=== PATIENT | male | born 1950 | race Hispanic/Latino ===

== ENCOUNTER → 2020-08-14 | Outpatient (CLI) | payer OTHER | END | disposition home or self-care (01) | LOC: SHCH 14:21 | PROVIDERS: ATTEND Internal Medicine Cardiovascular Disease | DX: I08.1 Rheumatic disorders of both mitral and tricuspid valves (principal); I27.20 Pulmonary hypertension, unspecified; I48.0 Paroxysmal atrial fibrillation | CPT/HCPCS: 93306; 93356 ==

== ENCOUNTER 2021-09-27 15:29 | Inpatient (IN) | payer OTHER ==
[~2021-09-27] VITALS: Ht 177.8 cm; Wt 97.3 kg
[2021-09-27 16:11] LABS: BASOPHILS % (AUTO) 0.3 % (0.0-5.0); HEMATOCRIT 48.2 % (42-54); LYMPHOCYTES % (AUTO) 3.4 % (21.0-51.0); MEAN CORPUSCULAR HEMOGLOBIN 30.5 pg (27.0-33.0); MEAN CORPUSCULAR HGB CONC 33.6 g/dL (32.0-36.0); MEAN CORPUSCULAR VOLUME 90.6 fL (79-99); MONOCYTES % (AUTO) 5.4 % (3.0-13.0); NEUTROPHILS % (AUTO) 88.6 % (40.0-77.0); PLATELET COUNT (AUTO) 220 K/uL (130-400); RED BLOOD CELL COUNT(AUTO) 5.32 MIL/uL (4.50-6.20); RED CELL DISTRIBUTION WIDTH 14.2 % (11.0-15.5); WHITE BLOOD COUNT (AUTO) 22.1 K/uL (4.8-10.8)
[2021-09-27 16:23] LABS: CREATININE 1.6 mg/dL (0.5-1.5); POTASSIUM 4.5 mmol/L (3.5-5.1)
[2021-09-27 16:28] LABS: BILIRUBIN,TOTAL 1.1 mg/dL (0.2-1.0); TOTAL PROTEIN, SERUM 7.6 g/dL (6.0-8.3)
[2021-09-27 16:39] LABS: B-TYPE NATRIURETIC PEPTIDE 160 pg/mL (0-100)
[2021-09-27 16:40] LABS: ALBUMIN 5.6 g/dL (3.5-5.0)
[2021-09-27] MEDS ORDERED: CEFTRIAXONE 1G VIAL IVP ONE (17:00)
[2021-09-27] MEDS ORDERED: CEFTRIAXONE 1G VIAL ONE (18:09)
[2021-09-27] MEDS ORDERED: DILTIAZEM 125 MG/25 ML INJ 125 MG in 0.9%NACL 100ML 100 ML IV SCH (18:30)
[2021-09-27] MEDS ORDERED: ACETAMINOPHEN 325 MG TAB PO PRN (19:00)
[2021-09-27] MEDS ORDERED: ONDANSETRON 4MG INJ IV PRN (19:00)
[2021-09-27] MEDS ORDERED: 0.9%NACL 1000ML 1,000 ML IV SCH ×2 (19:00)
[2021-09-27] MEDS ORDERED: NITROGLYCERIN 0.4 MG SL TAB SL PRN (19:00)
[2021-09-27] MEDS: ZOSYN 3.375GM +NS 50ML IV SCH (19:26)
[2021-09-27 19:31] LABS: HEMOGLOBIN A1C 5.7 % (4.0-6.0)
[2021-09-27] MEDS ORDERED: HEPARIN 5,000 UNIT VIAL ONE (19:32)
[2021-09-27] MEDS: 0.9%NACL 1000ML 1,000 ML IV SCH (19:33)
[2021-09-27] MEDS ORDERED: DIGO250T73 PO (20:04)
[2021-09-27] MEDS ORDERED: LISI20TA24 PO (20:04)
[2021-09-27] MEDS ORDERED: FURO40TA5 PO (20:04)
[2021-09-27] MEDS ORDERED: ATOR20TA65 PO (20:04)
[2021-09-27] MEDS ORDERED: APIX5TAB PO (20:04)
[2021-09-27] MEDS ORDERED: METO25TA6 PO (20:04)
[2021-09-27] MEDS: FAMOTIDINE 20MG TAB PO SCH (20:30)
[2021-09-27] MEDS: METOPROLOL TARTRATE 25 MG TAB PO SCH (20:30)
[2021-09-27] MEDS: HEPARIN 5,000 UNIT VIAL SQ SCH (20:31)
[2021-09-27 21:33] LABS: APPEARANCE,URINE CLEAR (CLEAR); BILIRUBIN,URINE NEGATIVE (NEGATIVE); COLOR,URINE YELLOW (YELLOW); GLUCOSE, URINE (UA) NEGATIVE (NEGATIVE); KETONES,URINE NEGATIVE (NEGATIVE); LEUKOCYTE ESTERASE ,URINE NEGATIVE (NEGATIVE); NITRATE,URINE NEGATIVE (NEGATIVE); OCCULT BLOOD,URINE MODERATE (NEGATIVE); PROTEIN,URINE TRACE mg/dL (NEGATIVE); UROBILINOGEN,URINE 0.2 mg/dL (0.2-1.0)
[2021-09-27 21:41] LABS: AMPHET/METH SCREEN,URINE NEGATIVE (NEGATIVE); BARBITURATE SCREEN, URINE NEGATIVE (NEGATIVE); BENZODIAZEPINES SCREEN,URINE NEGATIVE (NEGATIVE); CANNABINOID SCREEN,URINE NEGATIVE (NEGATIVE); COCAINE SCREEN,URINE NEGATIVE (NEGATIVE); OPIATE SCREEN,URINE NEGATIVE (NEGATIVE); PHENCYCLIDINE SCREEN,URINE NEGATIVE (NEGATIVE)
[2021-09-27 21:51] LABS: BACTERIA,URINE Few /HPF (None Seen); MUCUS,URINE Rare LPF (None Seen); SQUAMOUS EPITHELIAL CELL,UR Few /HPF (0-2); WBC,URINE 0-1 /HPF (0-1)
[2021-09-27 23:30] VITALS: BP 97/96
[2021-09-27] MEDS ORDERED: DILTIAZEM 125 MG/25 ML INJ 125 MG in 0.9%NACL 100ML 100 ML IV PRN (23:30)
[2021-09-28] MEDS ORDERED: GLUCAGON 1MG KIT 1 MG ML IM PRN
[2021-09-28] MEDS ORDERED: DEXTROSE 50%-WATER 50 ML DISP.SYRIN IV PRN
[2021-09-28] MEDS ORDERED: GABA-529 PO (00:06)
[2021-09-28] MEDS ORDERED: METF-446 PO (00:06)
[2021-09-28] MEDS ORDERED: CYCL-309 PO (00:06)
[2021-09-28 03:35] VITALS: BP 106/84
[2021-09-28] MEDS: ZOSYN 3.375GM +NS 50ML IV SCH ×3 (03:47→19:14)
[2021-09-28] MEDS: INSULIN HUMULIN R 100 UNIT/ML 3ML SQ SCH ×4 (06:50→20:51)
[2021-09-28 10:22] VITALS: BP 120/74
[2021-09-28] MEDS: METOPROLOL TARTRATE 25 MG TAB PO SCH ×2 (10:27→20:46)
[2021-09-28] MEDS: HEPARIN 5,000 UNIT VIAL SQ SCH ×3 (10:28→20:47)
[2021-09-28] MEDS: 0.9%NACL 1000ML 1,000 ML IV SCH ×2 (10:29→21:00)
[2021-09-28 11:41] VITALS: BP 129/69
[2021-09-28] MEDS ORDERED: SOLU-MEDROL 40MG VIAL IVP ONE (15:00)
[2021-09-28] MEDS ORDERED: TRAMADOL HCL 50 MG TABLET PO PRN ×2 (15:30)
[2021-09-28] MEDS ORDERED: SODIUM CHLORIDE 3% FOR INHALATION 4 ML/AMP VIAL.NEB IH ONE ×2 (15:38→23:51)
[2021-09-28 16:33] VITALS: BP 99/68
[2021-09-28 20:00] VITALS: BP 126/75
[2021-09-28] MEDS: FAMOTIDINE 20MG TAB PO SCH (20:46)
[2021-09-28 23:45] VITALS: BP 116/72
[2021-09-29] MEDS: ZOSYN 3.375GM +NS 50ML IV SCH ×3 (03:13→18:18)
[2021-09-29 04:00] VITALS: BP 98/65
[2021-09-29 05:21] LABS: BASOPHILS % (AUTO) 0.2 % (0.0-5.0); HEMATOCRIT 40.5 % (42-54); LYMPHOCYTES % (AUTO) 4.1 % (21.0-51.0); MEAN CORPUSCULAR HEMOGLOBIN 30.9 pg (27.0-33.0); MEAN CORPUSCULAR HGB CONC 33.1 g/dL (32.0-36.0); MEAN CORPUSCULAR VOLUME 93.5 fL (79-99); MONOCYTES % (AUTO) 2.5 % (3.0-13.0); NEUTROPHILS % (AUTO) 91.7 % (40.0-77.0); PLATELET COUNT (AUTO) 207 K/uL (130-400); RED BLOOD CELL COUNT(AUTO) 4.33 MIL/uL (4.50-6.20); RED CELL DISTRIBUTION WIDTH 14.3 % (11.0-15.5); WHITE BLOOD COUNT (AUTO) 16.9 K/uL (4.8-10.8)
[2021-09-29 05:42] LABS: ALBUMIN 1.7 g/dL (3.5-5.0); BILIRUBIN,TOTAL 0.5 mg/dL (0.2-1.0); CREATININE 1.1 mg/dL (0.5-1.5); MAGNESIUM 2.1 mg/dL (1.80-2.40); PHOSPHORUS 3.5 mg/dL (2.5-4.9); POTASSIUM 4.8 mmol/L (3.5-5.1); TOTAL PROTEIN, SERUM 6.3 g/dL (6.0-8.3)
[2021-09-29] MEDS: INSULIN HUMULIN R 100 UNIT/ML 3ML SQ SCH ×4 (06:36→21:01)
[2021-09-29 08:00] VITALS: BP 134/87
[2021-09-29] MEDS: METOPROLOL TARTRATE 25 MG TAB PO SCH ×2 (10:01→21:06)
[2021-09-29] MEDS: HEPARIN 5,000 UNIT VIAL SQ SCH ×3 (10:02→21:02)
[2021-09-29] MEDS ORDERED: SODIUM CHLORIDE 3% FOR INHALATION 4 ML/AMP VIAL.NEB IH ONE (11:30)
[2021-09-29] MEDS: 0.9%NACL 1000ML 1,000 ML IV SCH ×2 (11:35→23:55)
[2021-09-29 12:00] VITALS: BP 121/78
[2021-09-29] MEDS: SOLU-MEDROL 40MG VIAL IVP SCH (12:36)
[2021-09-29 16:00] VITALS: BP 136/97
[2021-09-29 20:00] VITALS: BP 123/74
[2021-09-29] MEDS: FAMOTIDINE 20MG TAB PO SCH (21:06)
[2021-09-30] VITALS (7 sets, daily range): BP systolic 112–150; BP diastolic 77–98
[2021-09-30] MEDS: ZOSYN 3.375GM +NS 50ML IV SCH ×3 (02:07→18:20)
[2021-09-30 04:36] LABS: BASOPHILS % (AUTO) 0.1 % (0.0-5.0); HEMATOCRIT 40.2 % (42-54); MEAN CORPUSCULAR HEMOGLOBIN 29.8 pg (27.0-33.0); MEAN CORPUSCULAR HGB CONC 31.8 g/dL (32.0-36.0); MEAN CORPUSCULAR VOLUME 93.5 fL (79-99); MONOCYTES % (AUTO) 2.3 % (3.0-13.0); PLATELET COUNT (AUTO) 240 K/uL (130-400); RED CELL DISTRIBUTION WIDTH 14.2 % (11.0-15.5)
[2021-09-30 04:44] LABS: ALBUMIN 1.7 g/dL (3.5-5.0); BILIRUBIN,TOTAL 0.4 mg/dL (0.2-1.0); MAGNESIUM 2.1 mg/dL (1.80-2.40); PHOSPHORUS 3.6 mg/dL (2.5-4.9); POTASSIUM 4.8 mmol/L (3.5-5.1); TOTAL PROTEIN, SERUM 6.1 g/dL (6.0-8.3)
[2021-09-30] MEDS: INSULIN HUMULIN R 100 UNIT/ML 3ML SQ SCH ×4 (06:06→21:00)
[2021-09-30] MEDS: METOPROLOL TARTRATE 25 MG TAB PO SCH ×2 (09:07→21:21)
[2021-09-30] MEDS: SOLU-MEDROL 40MG VIAL IVP SCH (09:07)
[2021-09-30] MEDS: HEPARIN 5,000 UNIT VIAL SQ SCH ×3 (09:09→21:19)
[2021-09-30] MEDS: 0.9%NACL 1000ML 1,000 ML IV SCH (14:48)
[2021-09-30] MEDS: FAMOTIDINE 20MG TAB PO SCH (21:21)
[2021-10-01] MEDS: ZOSYN 3.375GM +NS 50ML IV SCH ×3 (03:37→18:33)
[2021-10-01] MEDS: 0.9%NACL 1000ML 1,000 ML IV SCH (03:37)
[2021-10-01 03:45] VITALS: BP 139/88
[2021-10-01 05:01] LABS: HEMATOCRIT 40.5 % (42-54); MEAN CORPUSCULAR HEMOGLOBIN 30.9 pg (27.0-33.0); MEAN CORPUSCULAR HGB CONC 33.3 g/dL (32.0-36.0); MEAN CORPUSCULAR VOLUME 92.7 fL (79-99); RED BLOOD CELL COUNT(AUTO) 4.37 MIL/uL (4.50-6.20); RED CELL DISTRIBUTION WIDTH 14.3 % (11.0-15.5); WHITE BLOOD COUNT (AUTO) 10.6 K/uL (4.8-10.8)
[2021-10-01 05:36] LABS: CREATININE 1.1 mg/dL (0.5-1.5); MAGNESIUM 2.2 mg/dL (1.80-2.40); PHOSPHORUS 3.3 mg/dL (2.5-4.9); POTASSIUM 4.8 mmol/L (3.5-5.1)
[2021-10-01] MEDS: INSULIN HUMULIN R 100 UNIT/ML 3ML SQ SCH ×4 (06:58→21:00)
[2021-10-01 07:30] VITALS: BP 120/87
[2021-10-01] MEDS: SOLU-MEDROL 40MG VIAL IVP SCH (09:01)
[2021-10-01] MEDS: METOPROLOL TARTRATE 25 MG TAB PO SCH ×2 (09:01→21:00)
[2021-10-01] MEDS: HEPARIN 5,000 UNIT VIAL SQ SCH (09:11)
[2021-10-01 11:00] VITALS: BP 141/91
[2021-10-01 15:30] VITALS: BP 149/93
[2021-10-01 20:21] VITALS: BP 149/88
[2021-10-01] MEDS ORDERED: ATORVASTATIN 20 MG TABLET PO SCH (21:00)
[2021-10-01] MEDS: APIXABAN 5 MG TABLET PO SCH (22:07)
[2021-10-01] MEDS: LISINOPRIL 20 MG TABLET PO SCH (22:07)
[2021-10-01] MEDS: FAMOTIDINE 20MG TAB PO SCH (22:07)
[2021-10-02 00:02] VITALS: BP 123/89
[2021-10-02] MEDS: ZOSYN 3.375GM +NS 50ML IV SCH (03:09)
[2021-10-02 03:50] VITALS: BP 138/94
[2021-10-02 05:08] LABS: HEMATOCRIT 38.9 % (42-54); MEAN CORPUSCULAR HEMOGLOBIN 30.3 pg (27.0-33.0); MEAN CORPUSCULAR HGB CONC 32.9 g/dL (32.0-36.0); NUCLEATED RED BLOOD CELLS 0.2 % (0.0-0.19); RED BLOOD CELL COUNT(AUTO) 4.23 MIL/uL (4.50-6.20); RED CELL DISTRIBUTION WIDTH 14.1 % (11.0-15.5); WHITE BLOOD COUNT (AUTO) 8.4 K/uL (4.8-10.8)
[2021-10-02 05:39] LABS: CREATININE 1.3 mg/dL (0.5-1.5); PHOSPHORUS 3.6 mg/dL (2.5-4.9); POTASSIUM 4.7 mmol/L (3.5-5.1)
[2021-10-02] MEDS: INSULIN HUMULIN R 100 UNIT/ML 3ML SQ SCH ×2 (06:36→11:30)
[2021-10-02 07:30] VITALS: BP 136/97
[2021-10-02] MEDS ORDERED: DIGOXIN 250MCG TABLET PO SCH (09:00)
[2021-10-02] MEDS ORDERED: FUROSEMIDE 40 MG TABLET PO SCH (09:00)
[2021-10-02 11:00] VITALS: BP 143/90
[2021-10-02] MEDS: SOLU-MEDROL 40MG VIAL IVP SCH (11:20)
[2021-10-02] MEDS: APIXABAN 5 MG TABLET PO SCH (11:21)
[2021-10-02] MEDS: METOPROLOL TARTRATE 25 MG TAB PO SCH (11:22)
[2021-10-02] MEDS: LISINOPRIL 20 MG TABLET PO SCH (11:22)
[2021-10-02 16:00] VITALS: BP 152/74
== END 2021-10-02 17:30 | disposition home or self-care (01) | DRG 309 ==
LOC: EDH 15:29 → EDHIP 18:57 → OBSVTOIN 18:57 → 3CH 21:30
PROVIDERS: ADMIT Internal Medicine Pulmonary Disease; ATTEND Internal Medicine Pulmonary Disease
DX: I48.91 Unspecified atrial fibrillation (principal); N39.0 Urinary tract infection, site not specified; E87.1 Hypo-osmolality and hyponatremia; E11.65 Type 2 diabetes mellitus with hyperglycemia; N18.30 Chronic kidney disease, stage 3 unspecified; D72.829 Elevated white blood cell count, unspecified; E66.9 Obesity, unspecified; E78.5 Hyperlipidemia, unspecified; Z20.822 Contact with and (suspected) exposure to COVID-19; I12.9 Hypertensive chronic kidney disease with stage 1 through stage 4 chronic kidney disease, or unspecified chronic kidney disease; E11.22 Type 2 diabetes mellitus with diabetic chronic kidney disease; E78.00 Pure hypercholesterolemia, unspecified; Z79.01 Long term (current) use of anticoagulants; Z68.30 Body mass index [BMI] 30.0-30.9, adult; Z79.899 Other long term (current) drug therapy; Z82.49 Family history of ischemic heart disease and other diseases of the circulatory system; Z83.3 Family history of diabetes mellitus
CPT/HCPCS: 36415; 71045; 74176; 80048; 80053; 80305; 81001; 82308; 82550; 82948; 83036; 83605; 83735; 83880; 84100; 84145; 84484; 84550; 85025; 85027; 86038; 86215; 86235; 86255; 86431; 87040; 87088; 87635; 87804; 93005; 94640; 97039; 99291; C9803; G0378; J0696; J1644; J1815; J2543; J2920; J3490; J7030

== ENCOUNTER → 2021-11-23 | Outpatient (CLI) | payer OTHER, MEDICARE ==
[~2021-11-23] VITALS: Ht 177.8 cm; Wt 92.1 kg
[~2021-11-23] MED LIST: APIX5TAB PO; ATOR20TA65 PO; CYCL-309 PO; DIGO250T73 PO; FURO40TA5 PO; GABA-529 PO; LISI20TA24 PO; METF-446 PO; METO25TA6 PO; REGADENOSON 0.4 MG/5 ML PF SYG IVP SCH
== END | disposition home or self-care (01) ==
LOC: SHCH 08:47
PROVIDERS: ATTEND Internal Medicine Cardiovascular Disease
DX: I25.5 Ischemic cardiomyopathy (principal); I48.91 Unspecified atrial fibrillation; I51.7 Cardiomegaly
CPT/HCPCS: 78452; 93017; 96374; A9500 ×2; J2785

== ENCOUNTER → 2022-02-08 | Outpatient (CLI) | payer MEDICARE ==
[~2022-02-08] MED LIST changes: -REGADENOSON 0.4 MG/5 ML PF SYG IVP SCH
== END | disposition home or self-care (01) ==
LOC: SHCH 15:46
PROVIDERS: ATTEND Internal Medicine Cardiovascular Disease
DX: I08.3 Combined rheumatic disorders of mitral, aortic and tricuspid valves (principal); I48.0 Paroxysmal atrial fibrillation
CPT/HCPCS: 93306

== ENCOUNTER 2023-01-06 05:30 | Emergency (ER) | payer MEDICARE ==
[~2023-01-06] VITALS: Ht 177.8 cm; Wt 96.2 kg
[2023-01-06 05:50] VITALS: BP 134/81; PULSE 93; RESP 23; O2SAT 96
[2023-01-06 05:55] LABS: BASOPHILS % (AUTO) 0.3 % (0.0-5.0); EOSINOPHILS % (AUTO) 0.8 % (0.0-8.0); HEMATOCRIT 42.6 % (42-54); LYMPHOCYTES % (AUTO) 9.3 % (21.0-51.0); MEAN CORPUSCULAR HEMOGLOBIN 29.7 pg (27.0-33.0); MEAN CORPUSCULAR HGB CONC 33.1 g/dL (32.0-36.0); MEAN CORPUSCULAR VOLUME 89.9 fL (79-99); MONOCYTES % (AUTO) 4.2 % (3.0-13.0); PLATELET COUNT (AUTO) 189 K/uL (130-400); RED BLOOD CELL COUNT(AUTO) 4.74 MIL/uL (4.50-6.20); RED CELL DISTRIBUTION WIDTH 13.3 % (11.0-15.5); WHITE BLOOD COUNT (AUTO) 13.8 K/uL (4.8-10.8)
[2023-01-06 05:57] LABS: APPEARANCE,URINE CLEAR (CLEAR); BILIRUBIN,URINE NEGATIVE (NEGATIVE); COLOR,URINE YELLOW (YELLOW); GLUCOSE, URINE (UA) NEGATIVE (NEGATIVE); KETONES,URINE NEGATIVE (NEGATIVE); LEUKOCYTE ESTERASE ,URINE NEGATIVE Leu/uL (NEGATIVE); NITRATE,URINE NEGATIVE (NEGATIVE); OCCULT BLOOD,URINE LARGE (NEGATIVE); PH,URINE 5.5 (5.0-8.0); PROTEIN,URINE 30 mg/dL (NEGATIVE); UROBILINOGEN,URINE 0.2 mg/dL (0.2-1.0)
[2023-01-06] MEDS ORDERED: FAMO-136 PO (05:57)
[2023-01-06] MEDS ORDERED: OMEP40CA21 PO (05:57)
[2023-01-06] MEDS ORDERED: CYCL-309 PO (05:57)
[2023-01-06] MEDS ORDERED: IBUP-1493 PO (05:57)
[2023-01-06 06:10] LABS: MUCUS,URINE FEW LPF (None Seen); RBC,URINE 51-100 /HPF (0-1); SQUAMOUS EPITHELIAL CELL,UR RARE /HPF (0-2)
[2023-01-06 06:13] LABS: CREATININE 1.4 mg/dL (0.5-1.5); POTASSIUM 4.2 mmol/L (3.5-5.1)
[2023-01-06 06:17] LABS: ALBUMIN 3.5 g/dL (3.5-5.0); TOTAL PROTEIN, SERUM 6.6 g/dL (6.0-8.3)
== END 2023-01-06 06:45 | disposition home or self-care (01) ==
LOC: EDH 05:30
DX: R10.12 Left upper quadrant pain (principal); I10 Essential (primary) hypertension; E78.00 Pure hypercholesterolemia, unspecified; E11.9 Type 2 diabetes mellitus without complications; I48.91 Unspecified atrial fibrillation; Z79.84 Long term (current) use of oral hypoglycemic drugs; Z79.899 Other long term (current) drug therapy
CPT/HCPCS: 36415; 80053; 81001; 83690; 84484; 85025; 93005

== ENCOUNTER → 2025-04-15 | Emergency (ER) | payer MEDICARE ==
[~2025-04-15] VITALS: Ht 175.3 cm; Wt 96.6 kg
[~2025-04-15] MED LIST changes: +IBUP-1493 PO; +OMEP40CA21 PO; +TRAM-543 PO
--- NOTE | 2025-04-15 18:30 | ERN ---
General Chief Complaint: Shoulder Injury/Pain Stated Complaint: LT SHOULDER INJURY Time Seen by MD: 17:37 Source: patient History of Present Illness Initial Comments THIS IS A 74-YEAR-OLD MALE COMING IN COMPLAINING OF LEFT SHOULDER PAIN PATIENT STATES THAT HE HAS A HAS BEEN HAVING THIS PAIN FOR TWO DAYS. HE FELL DOWN LANDED IN HIS LEFT SHOULDER. HE IS NOT ABLE TO ELEVATED SHOULDER. Allergies: Coded Allergies: No Known Drug Allergies (Unverified Allergy, Unknown, 09/27/21) Home Meds Active Scripts Omeprazole (Omeprazole) 40 Mg Capsule.dr, 40 MG PO DAILY, #30 CAP Prov:MAURILIO HERNANDEZ MD 01/06/23 Ibuprofen (Motrin/Advil) 800 Mg Tab, 800 MG PO TID, #30 TAB Prov:MAURILIO HERNANDEZ MD 01/06/23 Cyclobenzaprine HCl (Cyclobenzaprine HCl) 10 Mg Tablet, 10 MG PO TIDP PRN for PAIN, #30 TAB Prov:MAURILIO HERNANDEZ MD 01/06/23 Reported Medications Cyclobenzaprine HCl (Cyclobenzaprine HCl) 10 Mg Tablet, 1 TAB PO HS 09/28/21 Metformin HCl (Metformin HCl) 1,000 Mg Tablet, 1 TAB PO BID 09/28/21 Gabapentin (Gabapentin) 100 Mg Capsule, 1 CAP PO BID 09/28/21 Digoxin (Digoxin) 250 Mcg Tablet, 250 MCG PO DAILY, TAB 09/27/21 Atorvastatin Calcium (Atorvastatin Calcium) 20 Mg Tablet, 20 MG PO HS, TAB 09/27/21 Apixaban (Eliquis) 5 Mg Tablet, 5 MG PO BID, TAB 09/27/21 Metoprolol Tartrate (Metoprolol Tartrate) 25 Mg Tablet, 25 MG PO BID, TAB 09/27/21 Lisinopril (Lisinopril) 20 Mg Tablet, 20 MG PO BID, TAB 09/27/21 Furosemide (Furosemide) 40 Mg Tablet, 40 MG PO DAILY, TAB 09/27/21 Past Medical History Past Medical History: A-Fib, Diabetes-Type II, High Cholesterol, Hypertension, Other Medical History Other: PROSTATE Past Surgical History: Other Surgical History Other: RT SHOULDER Family History Family History: HTN Social History Social History: Negative, Lives with family ROS Dictation CONSTITUTIONAL: NO CHILLS, NO FEVER, NO WEAKNESS, NO DIAPHORESIS, NO MALAISE. HEAD/FACE: NO SIGNS OF TRAUMA. EENT: NO EYE PAIN, NO BLURRED VISION, NO TEARING, NO DOUBLE VISION, NO EAR PAIN, NO EAR DISCHARGE, NO NOSE PAIN, NO NASAL CONGESTION, NO THROAT PAIN, NO THROAT SWELLING, NO MOUTH PAIN. RESPIRATORY: NO COUGH, NO ORTHOPNEA, NO SOB, NO STRIDOR, NO WHEEZING. CARDIOVASCULAR: NO CHEST PAIN, NO EDEMA, NO PALPITATIONS, NO SYNCOPE. GASTROINTESTINAL/ABDOMINAL: NO ABDOMINAL PAIN, NO CONSTIPATION, NO DIARRHEA, NO NAUSEA, NO VOMITING. GENITOURINARY: NO ABNORMAL DISCHARGE, NO DYSURIA, NO FREQUENT URINATION, NO HEMATURIA. NO COMPLAINTS OF PAIN IN THE GENITALS. MUSCULOSKELETAL: NO BACK PAIN, NO GOUT, JOINT PAIN, NO JOINT SWELLING, MUSCLE PAIN, NO MUSCLE STIFFNESS, NO NECK PAIN. INTEGUMENTARY: NO CHANGE IN COLOR, NO CHANGE IN HAIR/NAILS, NO DRYNESS, NO LESION, NO LUMPS, NO RASH. NEUROLOGICAL/PSYCH: NO ANXIETY, NOT DEPRESSED, NO EMOTIONAL PROBLEM, NO HEADACHE, NO NUMBNESS, NO PRE-EXISTING DEFICIT, NO HISTORY OF SEIZURES, NO TREMORS, NO WEAKNESS. HEMATOLOGIC/LYMPHATIC: NOT ANEMIC, NO HISTORY OF BLOOD CLOTS, NO APPARENT BLEEDING, NO BRUISING, GLANDS NOT SWOLLEN. ALL SYSTEMS NEGATIVE, EXCEPT NOTED. Physical Exam Physical Exam Dictation VITAL SIGNS: REVIEWED. GENERAL APPEARANCE: ALERT, ORIENTED X3, NO ACUTE DISTRESS, OBESE. HEAD AND FACE: NON-TRAUMATIC. EYES: PERRL, PINK CONJUNCTIVAS, EYELID NO TRAUMA, ANTERIOR CHAMBER CLEAR. EARS: PINNAS INTACT AND NO SIGNS OF TRAUMA OR ERYTHEMA. EAR CANALS CLEAR AND NO DISCHARGE. TMS NO ERYTHEMA. NOSE: NO DISCHARGE, NO BLEEDING. OROPHARYNX: MOUTH NORMAL, TEETH NO CARIES, TONGUE PINK. PHARYNX CLEAR, NO ERYTHEMA. TONSILS NO EXUDATES, NO ABSCESSES NOTED. MUCOUS MEMBRANE MOIST. NECK: SUPPLE, NON-TENDER, NO THYROMEGALY, NO MASSES, NO JVD, NO BRUITS. BREAST: DEFERRED. CHEST: NO TENDERNESS, NO CREPITUS, NO PARADOXICAL MOVEMENT, NO RETRACTIONS. LUNGS: CLEAR, WELL-VENTILATED, SYMMETRIC, NO RALES, NO WHEEZING, NO RHONCHI, NO STRIDOR, GOOD BREATH SOUNDS BILATERALLY. HEART: REGULAR RATE, REGULAR RHYTHM, NO MURMUR, NO GALLOPS. VASCULAR: NO PERIPHERAL EDEMA. ABDOMEN: SOFT, POSITIVE BOWEL SOUNDS, NONDISTENDED, NO GUARDING, NONTENDER, NO REBOUND, NO MASSES NO HEPATOMEGALY, NO SPLENOMEGALY, NO PLASCENCIA'S SIGN, NO HERNI . RECTAL: DEFERRED. GENITAL: DEFERRED. NEUROLOGICAL: NORMAL SPEECH, GROSS MOTOR FUNCTION INTACT, GROSS SENSORY FUNCTION INTACT. MUSCULOSKELETAL: NECK NONTENDER, FULL RANGE OF MOTION, BACK NONTENDER, FULL RANGE OF MOTION. EXTREMITIES: NONTENDER, FULL RANGE OF MOTION. LEFT SHOULDER PAIN WITH PALPATION SKIN: COLOR PINK, DRY, NO TURGOR, NO RASH, NO LACERATIONS, NO ABRASIONS, NO CONTUSIONS. LYMPHATICS: DEFERRED. Results Laboratory and Microbiology Labs Reviewed?: Yes EKG/XRAY/US/CT/MRI X-RAY Comment SHOULDER X-RAY, CLAVICULAR X-RAY LEFT-CLAVICULAR FRACTURE MDM MDM: DIFFERENTIAL DIAGNOSIS: CLAVICULAR FRACTURE , SHOULDER DISLOCATION, RATIONALE: TESTS CONSIDERED AND ORDERED SECONDARY TO SHARED DECISION MAKING INCLUDE: PREVIOUS OUTSIDE RECORDS REVIEWED: OLD ER VISITS. RISK OF COMPLICATION AND/OR MORBIDITY OR MORTALITY OF PATIENT MANAGEMENT: NONE MEDICATIONS-PER MEDICATION RECONCILIATION NEED FOR HOSPITALIZATION: PATIENT DOES NOT MEET CRITERIA FOR HOSPITALIZATION. NEED FOR EMERGENCY MAJOR/MINOR SURGERY: NO THERE ARE NO SOCIAL CONCERNS WITH THIS PATIENT. PRESCRIPTION DRUG MANAGEMENT PRESCRIPTIONS WILL INCLUDE SYMPTOMATIC CARE PATIENT IS A 74-YEAR-OLD MALE COMING IN COMPLAINING OF LEFT SHOULDER PAIN. X- RAY DISCLOSE A LEFT CLAVICULAR FRACTURE NO DISPLACEMENT, AC JOINT SEPARATION, SL ING WAS PLACED I DID ADVISED HIM APPROPRIATE FOLLOW UP WITH PCP AND CALL CENTER SUPPORT CONSULTANT FOR ONGOING EVALUATION AND MANAGEMENT. PATIENT WILL BE DISCHARGED IN STABLE CONDITION. LEFT SHOULDER SLING IN PLACE ED Course Orders Procedure Category Date Status Time Shoulder Comp 2+Vws Lt RAD 04/15/25 Taken 17:45 Clavicle Left RAD 04/15/25 Taken 17:45 Vital Signs Date Time Temp Pulse Resp B/P (MAP) Pulse Ox O2 Delivery O2 Flow Rate FiO2 04/15/25 18:40 98.1 65 15 130/69 96 Room Air* 0 21 04/15/25 17:43 98.1 60 20 121/77 97 Room Air* 0 04/15/25 17:37 98.1 60 20 121/77 97 Room Air DX & DISP Disposition: Discharge Departure Impression: Primary Impression: Clavicular fracture Additional Impression: Acromioclavicular joint separation, type 3 Condition: Stable Scripts Tramadol HCl/Acetaminophen (Tramadol-Acetaminophn 37.5-325) 37.5 Mg-325 Mg Tablet 1 TAB PO BID PRN for pain for 3 Days, #6 TAB 0 Refills Prov: ROMÁN NEWELL MD 04/15/25 Additional Instructions: FOLLOW-UP WITH PRIMARY CARE PROVIDER IN 1 TO 2 DAYS. TAKE MEDICATIONS DIRECTED HERE IN THE EMERGENCY ROOM. OKAY TO CONTINUE HOME MEDICATIONS UNLESS OTHERWISE DISCUSSED DURING YOUR VISIT IN THE EMERGENCY ROOM TODAY. RETURN TO YOUR NEAREST EMERGENCY ROOM IF SYMPTOMS WORSEN OR IF THERE IS NO IMPROVEMENT. CALL 911 IF YOU NEED IMMEDIATE ASSISTANCE. TAKE TYLENOL [id number] NEEDED AND IF NO CONTRAINDICATIONS ARE PRESENT. INCREASE ORAL HYDRATION. A W OUND CULTURE OR URINE CULTURE WAS ORDERED HERE IN THE EMERGENCY ROOM DEPARTMENT PLEASE FOLLOW-UP WITH PRIMARY CARE PROVIDER AND ADVISE THEM TO GET REPORTS FROM OUR FACILITY. IF YOU HAD ANY MAHNAZ WRAP/SPLINTS THAT WERE APPLIED HERE, PLEASE DO NOT REMOVE THEM UNTIL YOU SEE YOUR PRIMARY CARE OR SPECIALTY. REFERRALS: Referrals: MARAH ROBIN JR., MD (PCP) MILTON ALTAMIRANO MD Time of Disposition: 18:46 ROMÁN NEWELL MD Apr 15, 2025 18:30
[2025-04-15 18:40] VITALS: BP 130/69; PULSE 65; RESP 15; TEMP 98; O2SAT 96
--- NOTE | 2025-04-15 18:44 | NUR ---
ARM SLING APPLIED TO PT'S LEFT ARM.
--- NOTE | 2025-04-15 20:39 | HMCIMG ---
EXAM: CR right Clavicle Complete, 2 View. CLINICAL HISTORY: fall COMPARISON: None provided. FINDINGS: BONES: No acute fracture or aggressive appearing osseous lesion. JOINTS: Moderate acromioclavicular joint osteoarthritis. The glenohumeral joint appears preserved. SOFT TISSUES: The soft tissues are unremarkable. IMPRESSION: No acute osseous abnormality. /[place]
--- NOTE | 2025-04-15 20:40 | HMCIMG ---
EXAM: CR left Shoulder, 2 View. CLINICAL HISTORY: fall COMPARISON: None provided. FINDINGS: BONES: No acute fracture or aggressive appearing osseous lesion. JOINTS: No dislocation. SOFT TISSUES: The soft tissues are unremarkable. IMPRESSION: No acute abnormality evident on examination of the right shoulder. No acute fracture or dislocation. /[place]
== END ==
LOC: EDH 17:35
DX: S42.009A Fracture of unspecified part of unspecified clavicle, initial encounter for closed fracture (principal); S43.109A Unspecified dislocation of unspecified acromioclavicular joint, initial encounter; E11.9 Type 2 diabetes mellitus without complications; E78.00 Pure hypercholesterolemia, unspecified; I10 Essential (primary) hypertension; I48.91 Unspecified atrial fibrillation; Z79.84 Long term (current) use of oral hypoglycemic drugs; Z79.01 Long term (current) use of anticoagulants; Z79.1 Long term (current) use of non-steroidal anti-inflammatories (NSAID); Z79.899 Other long term (current) drug therapy; W18.39XA Other fall on same level, initial encounter; Y93.89 Activity, other specified; Y92.89 Other specified places as the place of occurrence of the external cause; Y99.8 Other external cause status
CPT/HCPCS: 73000; 73030; 99284